=== PATIENT | female | born 1970 | race Caucasian/White ===

== ENCOUNTER 2018-11-19 07:05 | Emergency (ER) | payer OTHER ==
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
--- NOTE | 2018-11-19 08:31 | XRAY ---
Indication: Left head injury following fall. Multiple contiguous axial images obtained through the head without contrast. Comparison: None Normal appearing brain parenchyma, ventricles, and bony calvarium. Visualized paranasal sinuses and mastoid air cells are clear. Impression: Normal CT head without contrast exam. CT DI 52.08
[2018-11-19 08:50] VITALS: BP 110/70; PULSE 62; O2SAT 98
== END 2018-11-19 08:49 | disposition home or self-care (01) ==
LOC: MERGE 07:05 → ED 07:05
DX: S09.90XA Unspecified injury of head, initial encounter (principal); W01.198A Fall on same level from slipping, tripping and stumbling with subsequent striking against other object, initial encounter; Y93.89 Activity, other specified; Y92.091 Bathroom in other non-institutional residence as the place of occurrence of the external cause
CPT/HCPCS: 70450; 93005; 99284